=== PATIENT | female | born 1935 | race Caucasian/White ===

== ENCOUNTER 2016-11-09 08:22 | Emergency (ER) | payer MEDICARE, OTHER ==
[2013-08-30 11:39] VITALS: BMI 17.8
[~2016-11-09 08:22] MED LIST: ASPIRIN325 MG PO; CO Q-10400 MG PO; CORDARONE200 MG PO; ESTRACE2 MG PO; ESTROL PO; LASIX20 MG PO; LOPRESSOR25 MG PO; MOTRIN PM CAPL1 EACH PO; MOTRIN400 MG PO; MUCINEX DM ER1 EAC1 PO; POTASSIUM CHLO10 ME1 PO; VITAMIN B COMPL1 TA1 PO; VITAMIN B COMPL1 TAB; VITAMIN D2000 UNIT PO; XARELTO10 MG PO; ZITHROMAX500 MG PO
== END 2016-11-09 09:20 | disposition home or self-care (01) ==
LOC: D.ER 08:22
DX: S60.561A Insect bite (nonvenomous) of right hand, initial encounter (principal); W57.XXXA Bitten or stung by nonvenomous insect and other nonvenomous arthropods, initial encounter; Y93.89 Activity, other specified; Y92.89 Other specified places as the place of occurrence of the external cause

== ENCOUNTER 2018-05-11 15:01 | Inpatient (IN) | payer MEDICARE, OTHER ==
[~2018-05-11] VITALS: Ht 167.6 cm; Wt 46.7 kg
[2018-05-11 16:39] LABS: BASOPHILS 0.2 % (0-2); EOSINOPHILS 0.9 % (0-7); HEMATOCRIT 40.9 % (36.0-48.0); HEMOGLOBIN 13.1 g/dL (12-16); IMMATURE GRANULOCYTES 0.3 % (0-5); LYMPHOCYTES 9.5 % (15-50); MCH 29.8 pg (26.0-34.0); MCV 93.2 fL (80.0-100.0); MEAN PLATELET VOLUME 9.4 fL (7.4-10.4); MONOCYTES 15.7 % (2-11); NEUTROPHILS 73.4 % (40-80); RBC 4.39 10x6/uL (4.00-5.40); RDW 13.3 % (11.5-14.5); WBC 16.9 10x3/uL (4.8-10.8)
[2018-05-11 16:41] LABS: PLATELET COUNT 357 10x3/uL (130-400)
[2018-05-11 16:50] LABS: APTT 29.6 SECONDS (22.8-39.4); INR 1.12 (0.85-1.17); PROTIME 13.9 SECONDS (11.6-15.0)
[2018-05-11 17:14] LABS: ALBUMIN 2.8 g/dL (3.4-5.0); ANION GAP 13.1 mmol/L (8-16); BILIRUBIN - DIRECT 0.2 mg/dL (0.00-0.30); BILIRUBIN - INDIRECT 0.29 mg/dL (0.00-1.00); BILIRUBIN - TOTAL 0.49 mg/dL (0.2-1.3); CARBON DIOXIDE 28.7 mmol/L (21.0-32.0); CREATININE - SERUM 1.2 mg/dL (0.6-1.3); POTASSIUM - SERUM 3.8 mmol/L (3.5-5.1); PROTEIN - SERUM 7.4 g/dL (6.4-8.2); T4 THYROXINE 7.7 ug/dL (4.7-13.3); THYROID STIMULATING HORMONE 2.39 uIU/mL (0.36-3.74)
[2018-05-11 17:39] VITALS: BP 111/61; BMI 15.6
[2018-05-11 21:11] VITALS: BP 113/68
[2018-05-12] VITALS (9 sets, daily range): BP systolic 117–147; BP diastolic 60–89; BMI 15.6
[2018-05-12 05:50] LABS: BASOPHILS 0.3 % (0-2); EOSINOPHILS 1.9 % (0-7); HEMATOCRIT 34.6 % (36.0-48.0); HEMOGLOBIN 11.2 g/dL (12-16); IMMATURE GRANULOCYTES 0.3 % (0-5); LYMPHOCYTES 9.4 % (15-50); MCH 29.6 pg (26.0-34.0); MCHC 32.4 g/dL (31.0-37.0); MCV 91.5 fL (80.0-100.0); MEAN PLATELET VOLUME 9.5 fL (7.4-10.4); MONOCYTES 17.7 % (2-11); NEUTROPHILS 70.4 % (40-80); PLATELET COUNT 289 10x3/uL (130-400); RBC 3.78 10x6/uL (4.00-5.40); RDW 13.4 % (11.5-14.5); WBC 12.8 10x3/uL (4.8-10.8)
[2018-05-12 06:10] LABS: INR 1.15 (0.85-1.17); PROTIME 14.2 SECONDS (11.6-15.0)
[2018-05-12 06:11] LABS: APTT 30.8 SECONDS (22.8-39.4)
[2018-05-12 06:16] LABS: ANION GAP 15.3 mmol/L (8-16); CALCIUM 8.9 mg/dL (8.5-10.1); CARBON DIOXIDE 24.6 mmol/L (21.0-32.0); CREATININE - SERUM 0.9 mg/dL (0.6-1.3); POTASSIUM - SERUM 3.9 mmol/L (3.5-5.1); PRE-ALBUMIN 11.7 mg/dL (18.0-35.7)
[2018-05-12 11:06] LABS: PROTEIN - BODY FLUID 3.9 G/DL
[2018-05-12 14:28] LABS: MACROPHAGES BF 9 %; NEUT - BF 73 %
[2018-05-12 15:48] LABS: AMYLASE - BODY FLUID 19 U/L; CHOLESTEROL - BODY FLUID 68 mg/dL; TRIGLYCERIDE - BODY FLUID 19 mg/dL
[2018-05-13] VITALS (9 sets, daily range): BP systolic 94–160; BP diastolic 66–90
[2018-05-13 07:24] LABS: BASOPHILS 0.2 % (0-2); EOSINOPHILS 1.8 % (0-7); HEMATOCRIT 38.5 % (36.0-48.0); HEMOGLOBIN 12.6 g/dL (12-16); IMMATURE GRANULOCYTES 0.4 % (0-5); LYMPHOCYTES 8.3 % (15-50); MCH 29.9 pg (26.0-34.0); MCHC 32.7 g/dL (31.0-37.0); MCV 91.2 fL (80.0-100.0); MEAN PLATELET VOLUME 10.3 fL (7.4-10.4); MONOCYTES 16.7 % (2-11); NEUTROPHILS 72.6 % (40-80); PLATELET COUNT 343 10x3/uL (130-400); RBC 4.22 10x6/uL (4.00-5.40); RDW 13.6 % (11.5-14.5)
[2018-05-13 07:32] LABS: CALCIUM 8.7 mg/dL (8.5-10.1); CARBON DIOXIDE 25.1 mmol/L (21.0-32.0); CREATININE - SERUM 0.8 mg/dL (0.6-1.3); POTASSIUM - SERUM 4.1 mmol/L (3.5-5.1)
[2018-05-13 13:18] LABS: FUNGUS STAIN Final report (())
[2018-05-13 21:07] LABS: ACID FAST SMEAR Negative (()); AFB SPECIMEN PROCESSING Not Indicated (())
[2018-05-14 03:47] VITALS: BP 107/47
[2018-05-14 09:40] VITALS: BP 102/59
[2018-05-14 12:10] LABS: ANA REFLEX - DIRECT Negative (Negative)
[2018-05-14 13:51] VITALS: BP 106/63
[2018-05-14 17:02] VITALS: BP 120/57
[2018-05-15] VITALS (7 sets, daily range): BP systolic 105–125; BP diastolic 55–62
[2018-05-15 05:39] LABS: BASOPHILS 0.2 % (0-2); EOSINOPHILS 2.4 % (0-7); HEMATOCRIT 38.1 % (36.0-48.0); HEMOGLOBIN 12.3 g/dL (12-16); IMMATURE GRANULOCYTES 0.4 % (0-5); LYMPHOCYTES 6.1 % (15-50); MCH 29.1 pg (26.0-34.0); MCHC 32.3 g/dL (31.0-37.0); MCV 90.1 fL (80.0-100.0); MEAN PLATELET VOLUME 9.8 fL (7.4-10.4); MONOCYTES 13.3 % (2-11); NEUTROPHILS 77.6 % (40-80); PLATELET COUNT 323 10x3/uL (130-400); RBC 4.23 10x6/uL (4.00-5.40); RDW 13.4 % (11.5-14.5); WBC 16.1 10x3/uL (4.8-10.8)
[2018-05-15 06:03] LABS: ANION GAP 13.6 mmol/L (8-16); CALCIUM 8.9 mg/dL (8.5-10.1); CARBON DIOXIDE 28.3 mmol/L (21.0-32.0); POTASSIUM - SERUM 3.9 mmol/L (3.5-5.1)
[2018-05-15 06:12] LABS: CREATININE - SERUM 1.1 mg/dL (0.6-1.3)
--- NOTE | 2018-05-15 09:11 | MORECARE ---
CASE MANAGEMENT DISCHARGE SUMMARY PATIENT: Kay CAGLE UNIT: [id number] ADM DATE: 05/11/18 AGE: 83 : 35 SEX: F ROOM/BED: D.2138 AUTHOR: VERENICE ALCALA PHYSICIAN: REFERRING PHYSICIAN: JUAN JOSÉ INIGUEZ MD DATE OF SERVICE: 05/15/18 Discharge Plan Patient Name: Kay CAGLE [facility] : 1935 Planned Disposition: Home Anticipated Discharge Date: 05/18/18 Discharge Date: Expected LOS: 7 Initial Reviewer: [email or web address] Initial Review Date: 05/15/2018 Generated: 05/15/18 10:11 am DCPIA - Discharge Planning Initial Assessment Updated by [email or web address]: Natasha Scott on 05/15/18 9:08 am * Is the patient Alert and Oriented? Yes * How many steps to enter\exit or inside your home? * PCP DR. INIGUEZ * Pharmacy [email or web address] IN [facility] * Preadmission Environment Home Alone * ADLs Independent * Equipment None * List name and contact numbers for known caregivers / representatives who currently or will assist patient after discharge: DUNCAN LEMONS (DAUGHTER) [phone] ANAIS YUEN (DAUGHTER) [phone] * Verbal permission to speak to the caregivers and representatives has been obtained from the patient. Yes * Community resources currently utilized None * Additional services required to return to the preadmission environment? Yes * Can the patient safely return to the preadmission environment? Yes * Has this patient been hospitalized within the prior 30 days at any hospital? No Patient Name: Kay CAGLE Page 33853 at 0911 All edits/amendments must be made on the electronic document DICTATION DATE: 05/15/18910 CONTINUOUS CONVEYOR SCREEN DRIER: ISSA 05/15/18910 RPT#: [id number] DC DATE: STATUS: ADM IN [facility] [address] [place] [address] END OF REPORT
--- NOTE | 2018-05-15 09:18 | MORECARE ---
CASE MANAGEMENT DISCHARGE SUMMARY PATIENT: Kay CAGLE UNIT: [id number] ADM DATE: 05/11/18 AGE: 83 : 35 SEX: F ROOM/BED: D.6631 AUTHOR: VERENICE ALCALA PHYSICIAN: REFERRING PHYSICIAN: JUAN JOSÉ INIGUEZ MD DATE OF SERVICE: 05/15/18 Discharge Plan Patient Name: Kay CAGLE Facility: [facility]:[place] : 1935 Planned Disposition: Home Anticipated Discharge Date: 05/18/18 Discharge Date: Expected LOS: 7 Initial Reviewer: [email or web address] Initial Review Date: 05/15/2018 Generated: 05/15/18 10:18 am Comments DCP- Discharge Planning Updated by [email or web address]: Natasha Scott on 05/15/18 8:[address] Patient Name: Kay CAGLE Admission Status: Elective Accout number: [id number] Admission Date: 05-11-2018 : 1935 Admission Diagnosis:SHORTNESS OF BREATH Attending: JUAN JOSÉ INIGUEZ Current LOS: 4 Anticipated DC Date: 05-18-2018 Planned Disposition: Home Primary Insurance: MEDICARE A & B Discharge Planning Comments: CM MET WITH PATIENT AND DAUGHTER (ANAIS) REGARDING D/C NEEDS AND PLANS. PATIENT LIVES ALONE IN THE [facility] AND WANTS TO RETURN THERE AT D/C. PATIENT STATED HER FAMILY OR A FRIEND WOULD DRIVE HER HOME AT DISCHARGE. PATIENT IS INDEPENDENT WITH HER CARE AND HAS NO DME EQUIPMENT AT HOME. PATIENTS PCP IS DR. INIGUEZ AND USES [facility] AT THE [facility]. PATIENTS DAUGHTER STATED THEY DID NOT WANT TO CHOOSE A HOME HEALTH OR ANY OTHER PROVIDER FOR SERVICES UNTIL THEY SPEAK WITH DR. INIGUEZ. DAUGHTER STATED THEY WILL WAIT FOR THE OUTCOME BEFORE CONSIDERING OPTIONS. CM WILL CONTINUE TO FOLLOW PATIENT WITH D/C NEEDS AND PLANS. PCP DR. INIGUEZ [facility] DUNCAN (DAUGHTER) [phone] ANAIS (DAUGHTER) [phone] Machine Riveter: Natasha Scott DCPIA - Discharge Planning Initial Assessment Updated by [id number]: Natasha Scott on 05/15/18 9:08 am * Is the patient Alert and Oriented? Yes * How many steps to enter\exit or inside your home? * PCP DR. INIGUEZ * Pharmacy [facility] IN [facility] * Preadmission Environment Home Alone * ADLs Independent * Equipment None * List name and contact numbers for known caregivers / representatives who currently or will assist patient after discharge: DUNCAN LEMONS (DAUGHTER) [phone] ANAIS YUEN (DAUGHTER) [phone] * Verbal permission to speak to the caregivers and representatives has been obtained from the patient. Yes * Community resources currently utilized None * Additional services required to return to the preadmission environment? Yes * Can the patient safely return to the preadmission environment? Yes * Has this patient been hospitalized within the prior 30 days at any hospital? No Last DP export: 05/15/18 8:11 am Patient Name: Kay CAGLE Page 51702 at 0918 All edits/amendments must be made on the electronic document DICTATION DATE: 05/15/18916 SALON STYLIST: ISSA 05/15/18916 RPT#: [id number] DC DATE: STATUS: ADM IN [facility] [address] [place] [address] END OF REPORT
[2018-05-16] VITALS (9 sets, daily range): BP systolic 97–140; BP diastolic 50–71; Ht 167.6 cm; Wt 46.7 kg
[2018-05-16 05:43] LABS: BASOPHILS 0.1 % (0-2); EOSINOPHILS 3.4 % (0-7); HEMATOCRIT 35.2 % (36.0-48.0); HEMOGLOBIN 11.3 g/dL (12-16); IMMATURE GRANULOCYTES 0.3 % (0-5); LYMPHOCYTES 6.4 % (15-50); MCH 29.2 pg (26.0-34.0); MCHC 32.1 g/dL (31.0-37.0); MEAN PLATELET VOLUME 10.1 fL (7.4-10.4); MONOCYTES 14.6 % (2-11); NEUTROPHILS 75.2 % (40-80); PLATELET COUNT 303 10x3/uL (130-400); RBC 3.87 10x6/uL (4.00-5.40); RDW 13.4 % (11.5-14.5); WBC 14.4 10x3/uL (4.8-10.8)
[2018-05-16 06:04] LABS: ANION GAP 12.5 mmol/L (8-16); CALCIUM 8.5 mg/dL (8.5-10.1); CARBON DIOXIDE 28.5 mmol/L (21.0-32.0); CREATININE - SERUM 0.9 mg/dL (0.6-1.3)
[2018-05-17] VITALS: BP 110/58
[2018-05-17 09:17] VITALS: BP 113/60
[2018-05-17 11:46] VITALS: BP 118/55
[2018-05-17 20:00] VITALS: BP 139/62
[2018-05-18] VITALS: BP 128/94
[2018-05-18 04:00] VITALS: BP 130/63
[2018-05-18 08:04] VITALS: BP 93/62
[2018-05-18 12:31] VITALS: BP 114/57
[2018-05-18 17:24] VITALS: BP 125/57
[2018-05-18 20:00] VITALS: BP 118/45
[2018-05-19] VITALS: BP 119/63
[2018-05-19 04:00] VITALS: BP 123/62
[2018-05-19 05:05] LABS: BASOPHILS 0.1 % (0-2); EOSINOPHILS 0.9 % (0-7); HEMATOCRIT 32.1 % (36.0-48.0); HEMOGLOBIN 10.2 g/dL (12-16); IMMATURE GRANULOCYTES 0.5 % (0-5); MCH 28.7 pg (26.0-34.0); MCHC 31.8 g/dL (31.0-37.0); MCV 90.4 fL (80.0-100.0); MEAN PLATELET VOLUME 9.8 fL (7.4-10.4); MONOCYTES 15.3 % (2-11); NEUTROPHILS 76.2 % (40-80); PLATELET COUNT 310 10x3/uL (130-400); RBC 3.55 10x6/uL (4.00-5.40); RDW 13.4 % (11.5-14.5); WBC 19.3 10x3/uL (4.8-10.8)
[2018-05-19 05:24] LABS: ANION GAP 11.2 mmol/L (8-16); CALCIUM 8.3 mg/dL (8.5-10.1); CARBON DIOXIDE 28.3 mmol/L (21.0-32.0); POTASSIUM - SERUM 4.5 mmol/L (3.5-5.1)
[2018-05-19 09:45] VITALS: BP 158/89
[2018-05-19 11:00] VITALS: BP 111/53
[2018-05-19 18:08] LABS: ACID FAST SMEAR Negative (()); AFB SPECIMEN PROCESSING Concentration (())
[2018-05-19 20:00] VITALS: BP 136/56
[2018-05-20] VITALS: BP 130/64
[2018-05-20 04:00] VITALS: BP 138/69
[2018-05-20 08:15] VITALS: BP 113/57
[2018-05-20 11:06] LABS: ANION GAP 12.8 mmol/L (8-16); CALCIUM 8.6 mg/dL (8.5-10.1); CARBON DIOXIDE 27.3 mmol/L (21.0-32.0); POTASSIUM - SERUM 4.1 mmol/L (3.5-5.1)
[2018-05-20 11:25] LABS: BASOPHILS 0.1 % (0-2); EOSINOPHILS 1.3 % (0-7); HEMATOCRIT 36.5 % (36.0-48.0); HEMOGLOBIN 11.7 g/dL (12-16); IMMATURE GRANULOCYTES 0.3 % (0-5); LYMPHOCYTES 10.7 % (15-50); MCH 29.5 pg (26.0-34.0); MCHC 32.1 g/dL (31.0-37.0); MCV 92.2 fL (80.0-100.0); MEAN PLATELET VOLUME 10.1 fL (7.4-10.4); MONOCYTES 8.5 % (2-11); NEUTROPHILS 79.1 % (40-80); RBC 3.96 10x6/uL (4.00-5.40); RDW 13.3 % (11.5-14.5); WBC 18.2 10x3/uL (4.8-10.8)
[2018-05-20 11:31] LABS: PLATELET COUNT 402 10x3/uL (130-400)
[2018-05-20 11:41] VITALS: BP 106/86
[2018-05-20 11:45] LABS: % SATURATION 12 % (15-55); IRON 20 ug/dl (35-150); TOTAL IRON BIND CAPACITY 158 ug/dl (260-445); UNSAT IRON BIND CAPACITY 138 ug/dl (150-375)
[2018-05-20 12:21] LABS: FUNGUS STAIN Final report (())
[2018-05-20 17:05] VITALS: BP 104/45
--- NOTE | 2018-05-20 17:50 | MORECARE ---
CASE MANAGEMENT DISCHARGE SUMMARY PATIENT: Kay CAGLE UNIT: [id number] ADM DATE: 05/11/18 AGE: 83 : 35 SEX: F ROOM/BED: D.8967 AUTHOR: VERENICE ALCALA PHYSICIAN: REFERRING PHYSICIAN: JUAN JOSÉ INIGUEZ MD DATE OF SERVICE: 05/20/18 Discharge Plan Patient Name: Kay CAGLE Facility: [facility]:[place] : 1935 Planned Disposition: Snf Facility Anticipated Discharge Date: 05/23/18 Discharge Date: Expected LOS: 12 Initial Reviewer: [email or web address] Initial Review Date: 05/15/2018 Generated: 05/20/18 6:50 pm Comments DCP- Discharge Planning Updated by [email or web address]: Natasha Scott on 05/15/18 8:[address] Patient Name: Kay CAGLE Admission Status: Elective Accout number: [id number] Admission Date: 05-11-2018 : 1935 Admission Diagnosis:SHORTNESS OF BREATH Attending: JUAN JOSÉ INIGUEZ Current LOS: 4 Anticipated DC Date: 05-18-2018 Planned Disposition: Home Primary Insurance: MEDICARE A & B Discharge Planning Comments: CM MET WITH PATIENT AND DAUGHTER (ANAIS) REGARDING D/C NEEDS AND PLANS. PATIENT LIVES ALONE IN THE [facility] AND WANTS TO RETURN THERE AT D/C. PATIENT STATED HER FAMILY OR A FRIEND WOULD DRIVE HER HOME AT DISCHARGE. PATIENT IS INDEPENDENT WITH HER CARE AND HAS NO DME EQUIPMENT AT HOME. PATIENTS PCP IS DR. INIGUEZ AND USES [facility] AT THE [facility]. PATIENTS DAUGHTER STATED THEY DID NOT WANT TO CHOOSE A HOME HEALTH OR ANY OTHER PROVIDER FOR SERVICES UNTIL THEY SPEAK WITH DR. INIGUEZ. DAUGHTER STATED THEY WILL WAIT FOR THE OUTCOME BEFORE CONSIDERING OPTIONS. CM WILL CONTINUE TO FOLLOW PATIENT WITH D/C NEEDS AND PLANS. PCP DR. INIGUEZ [facility] DUNCAN (DAUGHTER) [phone] ANAIS (DAUGHTER) [phone] Unhairer: Natasha Scott DCPIA - Discharge Planning Initial Assessment Updated by [email or web address]: Natasha Scott on 05/15/18 9:08 am * Is the patient Alert and Oriented? Yes * How many steps to enter\exit or inside your home? * PCP DR. INIGUEZ * Pharmacy [facility] IN [facility] * Preadmission Environment Home Alone * ADLs Independent * Equipment None * List name and contact numbers for known caregivers / representatives who currently or will assist patient after discharge: DUNCAN LEMONS (DAUGHTER) [phone] ANAIS YUEN (DAUGHTER) [phone] * Verbal permission to speak to the caregivers and representatives has been obtained from the patient. Yes * Community resources currently utilized None * Additional services required to return to the preadmission environment? Yes * Can the patient safely return to the preadmission environment? Yes * Has this patient been hospitalized within the prior 30 days at any hospital? No Last DP export: 05/15/18 8:18 am Patient Name: Kay CAGLE Page 18207 at 1750 All edits/amendments must be made on the electronic document DICTATION DATE: 05/20/181749 FORMAL WAITER/WAITRESS: ISSA 05/20/181749 RPT#: [id number] DC DATE: STATUS: ADM IN [facility] [address] [place] [address] END OF REPORT
--- NOTE | 2018-05-20 17:59 | MORECARE ---
CASE MANAGEMENT DISCHARGE SUMMARY PATIENT: Kay CAGLE UNIT: [id number] ADM DATE: 05/11/18 AGE: 83 : 35 SEX: F ROOM/BED: D.2263 AUTHOR: VERENICE ALCALA PHYSICIAN: REFERRING PHYSICIAN: JUAN JOSÉ INIGUEZ MD DATE OF SERVICE: 05/20/18 Discharge Plan Patient Name: Kay CAGLE Facility: [facility]:[place] : 1935 Planned Disposition: Correction Facility Anticipated Discharge Date: 05/23/18 Discharge Date: Expected LOS: 12 Initial Reviewer: [email or web address] Initial Review Date: 05/15/2018 Generated: 05/20/18 6:58 pm Comments DCP- Discharge Planning Updated by [email or web address]: Jamie Garza on 05/20/18 4:[address] Patient Name: Kay CAGLE Encounter No: [id number] : 1935 Primary Insurance: MEDICARE A & B Anticipated DC Date: 05-23-2018 Planned Disposition: Correction Facility External Planned Provider: [facility] MED[facility]ARE REH[facility] BED DCP follow-up note: CM MET WITH PT AND DAUGHTERS IN ROOM TO DISCUSS REHAB AND DISCHARGE NEEDS. PT REPORTS BEING WEAK AND UNABLE TO RETURN HOME ALONE AT DISCHARGE. PT'S DAUGHTERS RECOMMENDED REHAB AT [facility] TO PT PT DOES NOT FEEL SHE CAN PARTICIPATE IN THREE HOURS OF THERAPY PER DAY FOR INPATIENT REHAB. CM PROVIDED PROVIDER LISTING. PT WANTS REHAB AT [facility] TO BE CLOSE TO HER HOME. CHOICE SIGNED. CM EXPLAINED THAT PT WILL NEED TO BE MEDIALLY STABLE FOR DISCHARGE TO BE DISCHARGED TO REHAB AND ONCE PHYSICAL AND OCCUPATIONAL THERAPY EVALUATIONS ARE COMPLETED WHILE HERE IN HOSPITAL, CM WILL SEND REFERRAL FOR REHAB TO [facility]. PATIENT NEEDS ORDERS FOR PHYSICAL AND OCCUPATIONAL THERAPY EVALUATIONS. ONCE COMPLETED AND DOCUMENTED, CM WILL SEND REFERRAL FOR REHAB TO [facility]. JUANA Katz DCP- Discharge Planning Updated by [id number]: Natasha Scott on 05/15/18 8:[address] Patient Name: Kay CAGLE Admission Status: Elective Accout number: [id number] Admission Date: 05-11-2018 : 1935 Admission Diagnosis:SHORTNESS OF BREATH Attending: JUAN JOSÉ INIGUEZ Current LOS: 4 Anticipated DC Date: 05-18-2018 Planned Disposition: Home Primary Insurance: MEDICARE A & B Discharge Planning Comments: CM MET WITH PATIENT AND DAUGHTER (ANAIS) REGARDING D/C NEEDS AND PLANS. PATIENT LIVES ALONE IN THE [facility] AND WANTS TO RETURN THERE AT D/C. PATIENT STATED HER FAMILY OR A FRIEND WOULD DRIVE HER HOME AT DISCHARGE. PATIENT IS INDEPENDENT WITH HER CARE AND HAS NO DME EQUIPMENT AT HOME. PATIENTS PCP IS DR. INIGUEZ AND USES [facility] AT THE [facility]. PATIENTS DAUGHTER STATED THEY DID NOT WANT TO CHOOSE A HOME HEALTH OR ANY OTHER PROVIDER FOR SERVICES UNTIL THEY SPEAK WITH DR. INIGUEZ. DAUGHTER STATED THEY WILL WAIT FOR THE OUTCOME BEFORE CONSIDERING OPTIONS. CM WILL CONTINUE TO FOLLOW PATIENT WITH D/C NEEDS AND PLANS. PCP DR. INIGUEZ [facility] DUNCAN (DAUGHTER) [phone] ANAIS (DAUGHTER) [phone] Pretzel Cooker: Natasha Scott DCPIA - Discharge Planning Initial Assessment Updated by [email or web address]: Natasha Scott on 05/15/18 9:08 am * Is the patient Alert and Oriented? Yes * How many steps to enter\exit or inside your home? * PCP DR. INIGUEZ * Pharmacy [facility] IN [facility] * Preadmission Environment Home Alone * ADLs Independent * Equipment None * List name and contact numbers for known caregivers / representatives who currently or will assist patient after discharge: DUNCAN LEMONS (DAUGHTER) [phone] ANAIS YUEN (DAUGHTER) [phone] * Verbal permission to speak to the caregivers and representatives has been obtained from the patient. Yes * Community resources currently utilized None * Additional services required to return to the preadmission environment? Yes * Can the patient safely return to the preadmission environment? Yes * Has this patient been hospitalized within the prior 30 days at any hospital? No External Providers External Provider: [facility] Next Contact Date: 05/23/2018 Service Request Date: Service Type: Resolution: Reviewer: Comments: Last DP export: 05/20/18 4:50 pm Patient Name: Kay CAGLE Page 45146 at 1759 All edits/amendments must be made on the electronic document DICTATION DATE: 05/20/181757 MERCHANT PATROLLER: ISSA 05/20/181757 RPT#: [id number] DC DATE: STATUS: ADM IN [facility] [address] [place] [address] END OF REPORT
[2018-05-20 20:00] VITALS: BP 109/53
[2018-05-21 00:27] VITALS: BP 114/54
[2018-05-21 05:02] VITALS: BP 115/64
[2018-05-21 05:19] LABS: ANION GAP 12.2 mmol/L (8-16); CALCIUM 8.4 mg/dL (8.5-10.1); POTASSIUM - SERUM 4.2 mmol/L (3.5-5.1)
[2018-05-21 05:30] LABS: BASOPHILS 0.2 % (0-2); EOSINOPHILS 2.7 % (0-7); HEMOGLOBIN 11.1 g/dL (12-16); IMMATURE GRANULOCYTES 0.5 % (0-5); LYMPHOCYTES 4.2 % (15-50); MCH 29.1 pg (26.0-34.0); MCHC 31.7 g/dL (31.0-37.0); MCV 91.9 fL (80.0-100.0); MONOCYTES 14.3 % (2-11); NEUTROPHILS 78.1 % (40-80); PLATELET COUNT 342 10x3/uL (130-400); RBC 3.81 10x6/uL (4.00-5.40); RDW 13.4 % (11.5-14.5); WBC 17.3 10x3/uL (4.8-10.8)
[2018-05-21 07:40] VITALS: BP 107/42
[2018-05-21 20:00] VITALS: BP 128/57
[2018-05-22] VITALS: BP 121/61
[2018-05-22 04:00] VITALS: BP 122/63
[2018-05-22 10:50] VITALS: BP 125/57
[2018-05-22 17:41] VITALS: BP 132/55
[2018-05-22 20:38] VITALS: BP 104/46
[2018-05-23] VITALS: BP 108/58
[2018-05-23 04:00] VITALS: BP 146/61
[2018-05-23 07:42] VITALS: BP 110/56
[2018-05-23] MEDS ORDERED: ATROVENT 0.02%2.5 ML UPD (08:13)
[2018-05-23] MEDS ORDERED: LOPRESSOR25 MG PO (08:14)
[2018-05-23] MEDS ORDERED: AMIODARONE HCL200 MG PO (08:14)
[2018-05-23] MEDS ORDERED: CARDIZEM CD180 MG PO (08:14)
[2018-05-23] MEDS ORDERED: MUCINEX DM ER1 EAC1 PO (08:15)
[2018-05-23] MEDS ORDERED: PULMICORT0.5 MG/21 UPD (08:15)
[2018-05-23] MEDS ORDERED: PROTONIX40 MG PO (08:16)
[2018-05-23] MEDS ORDERED: MARINOL2.5 MG PO ×2 (08:16→11:39)
[2018-05-23] MEDS ORDERED: CALMOSEPTINE OI71 GM TOPICAL (08:17)
[2018-05-23 11:18] VITALS: BP 111/50
--- NOTE | 2018-05-23 14:14 | MORECARE ---
CASE MANAGEMENT DISCHARGE SUMMARY PATIENT: Kay CAGLE UNIT: [id number] ADM DATE: 05/11/18 AGE: 83 : 35 SEX: F ROOM/BED: D.9359 AUTHOR: VERENICE ALCALA PHYSICIAN: REFERRING PHYSICIAN: JUAN JOSÉ INIGUEZ MD DATE OF SERVICE: 05/23/18 Discharge Plan Patient Name: Kay CAGLE Facility: [facility]:[place] : 1935 Planned Disposition: Prison Facility Anticipated Discharge Date: 05/23/18 Discharge Date: Expected LOS: 12 Initial Reviewer: [email or web address] Initial Review Date: 05/15/2018 Generated: 05/23/18 3:14 pm Comments DCP- Discharge Planning Updated by [email or web address]: Jamie Garza on 05/20/18 4:[address] Patient Name: Kay CAGLE Encounter No: [id number] : 1935 Primary Insurance: MEDICARE A & B Anticipated DC Date: 05-23-2018 Planned Disposition: Prison Facility External Planned Provider: [facility] MEDICARE REHAB BED DCP follow-up note: CM MET WITH PT AND DAUGHTERS IN ROOM TO DISCUSS REHAB AND DISCHARGE NEEDS. PT REPORTS BEING WEAK AND UNABLE TO RETURN HOME ALONE AT DISCHARGE. PT'S DAUGHTERS RECOMMENDED REHAB AT [facility] TO PT PT DOES NOT FEEL SHE CAN PARTICIPATE IN THREE HOURS OF THERAPY PER DAY FOR INPATIENT REHAB. CM PROVIDED PROVIDER LISTING. PT WANTS REHAB AT [facility] TO BE CLOSE TO HER HOME. CHOICE SIGNED. CM EXPLAINED THAT PT WILL NEED TO BE MEDIALLY STABLE FOR DISCHARGE TO BE DISCHARGED TO REHAB AND ONCE PHYSICAL AND OCCUPATIONAL THERAPY EVALUATIONS ARE COMPLETED WHILE HERE IN HOSPITAL, CM WILL SEND REFERRAL FOR REHAB TO [facility]. PATIENT NEEDS ORDERS FOR PHYSICAL AND OCCUPATIONAL THERAPY EVALUATIONS. ONCE COMPLETED AND DOCUMENTED, CM WILL SEND REFERRAL FOR REHAB TO [facility]. JUANA Katz DCP- Discharge Planning Updated by [id number]: Natasha Scott on 05/15/18 8:[address] Patient Name: Kay CAGLE Admission Status: Elective Accout number: [id number] Admission Date: 05-11-2018 : 1935 Admission Diagnosis:SHORTNESS OF BREATH Attending: JUAN JOSÉ INIGUEZ Current LOS: 4 Anticipated DC Date: 05-18-2018 Planned Disposition: Home Primary Insurance: MEDICARE A & B Discharge Planning Comments: CM MET WITH PATIENT AND DAUGHTER (ANAIS) REGARDING D/C NEEDS AND PLANS. PATIENT LIVES ALONE IN THE [facility] AND WANTS TO RETURN THERE AT D/C. PATIENT STATED HER FAMILY OR A FRIEND WOULD DRIVE HER HOME AT DISCHARGE. PATIENT IS INDEPENDENT WITH HER CARE AND HAS NO DME EQUIPMENT AT HOME. PATIENTS PCP IS DR. INIGUEZ AND USES [facility] AT THE [facility]. PATIENTS DAUGHTER STATED THEY DID NOT WANT TO CHOOSE A HOME HEALTH OR ANY OTHER PROVIDER FOR SERVICES UNTIL THEY SPEAK WITH DR. INIGUEZ. DAUGHTER STATED THEY WILL WAIT FOR THE OUTCOME BEFORE CONSIDERING OPTIONS. CM WILL CONTINUE TO FOLLOW PATIENT WITH D/C NEEDS AND PLANS. PCP DR. INIGUEZ [facility] DUNCAN (DAUGHTER) [phone] ANAIS (DAUGHTER) [phone] Technical Support Intern: Natasha Scott DCPIA - Discharge Planning Initial Assessment Updated by [email or web address]: Natasha Scott on 05/15/18 9:08 am * Is the patient Alert and Oriented? Yes * How many steps to enter\exit or inside your home? * PCP DR. INIGUEZ * Pharmacy [facility] IN [facility] * Preadmission Environment Home Alone * ADLs Independent * Equipment None * List name and contact numbers for known caregivers / representatives who currently or will assist patient after discharge: DUNCAN LEMONS (DAUGHTER) [phone] ANAIS YUEN (DAUGHTER) [phone] * Verbal permission to speak to the caregivers and representatives has been obtained from the patient. Yes * Community resources currently utilized None * Additional services required to return to the preadmission environment? Yes * Can the patient safely return to the preadmission environment? Yes * Has this patient been hospitalized within the prior 30 days at any hospital? No Coverage Notice Reviewer: [id number] - Jamie Garza Notice Issued Date-Time: 05/23/2018 12:05 Notice Type: IM Discharge Notice Notice Delivered To: Patient Relationship to Patient: Application Development Specialist Name: Delivery Method: HAND - Hand Delivered Gabriela Days: Prior Verbal Notification: Recipient Understood Notice: Yes Recipient Signature: Med Rec Note Co-signed by Attending: Coverage Notice Comment: PATIENT REFUSED SIGNATURE Last DP export: 05/20/18 4:59 pm Patient Name: Kay CAGLE Page 01588 at 1414 All edits/amendments must be made on the electronic document DICTATION DATE: 05/23/181412 MAINTE[address]CE OF [address] SUPERVISOR: ISSA 05/23/181412 RPT#: [id number] DC DATE: STATUS: ADM IN [facility] [address] [place] [address] END OF REPORT
--- NOTE | 2018-05-23 14:23 | MORECARE ---
CASE MANAGEMENT DISCHARGE SUMMARY PATIENT: Kay CAGLE UNIT: [id number] ADM DATE: 05/11/18 AGE: 83 : 35 SEX: F ROOM/BED: D.6233 AUTHOR: VERENICE ALCALA PHYSICIAN: REFERRING PHYSICIAN: JUAN JOSÉ INIGUEZ MD DATE OF SERVICE: 05/23/18 Discharge Plan Patient Name: Kay CAGLE Facility: [facility]:[place] : 1935 Planned Disposition: Care Home Facility Anticipated Discharge Date: 05/23/18 Discharge Date: Expected LOS: 12 Initial Reviewer: [id number] Initial Review Date: 05/15/2018 Generated: 05/23/18 3:22 pm Comments DCP- Discharge Planning Updated by [email or web address]: Jamie Garza on 05/23/18 1:[address] Patient Name: Kay CAGLE Encounter No: [id number] : 1935 Primary Insurance: MEDICARE A & B Anticipated DC Date: 05-23-2018 Planned Disposition: Care Home Facility External Planned Provider: [facility] MEDICARE REHAB BED DCP follow-up note: CM SPOKE TO DR. INIGUEZ WHO INFORMED THAT PT IS READY TO DISCHARGE TO REHAB TODAY. CM REVIEWED CHART, PHYSICAL THERAPY EVALUATION IS DOCUMENTED OVER WEEKEND. CM FAXED REFERRAL TO [facility] AT [phone]. CM CALLED [facility], , ASKED FOR SCREENING AND ADMISSION DETERMINATION TODAY. PT NOTIFIED IN ROOM, PT REPORTS AGREEMENT WITH REHAB PLACEMENT AT [facility]. IMPORTANT MESSAGE FROM MEDICARE PROVIDED AND EXPLAINED. PT ASKED CM TO NOTIFY HER DAUGHTER WHO IS "HERE SOMEWHERE." PT'S DAUGHTER SPOKE TO CM AT NURSES STATION, THEY ARE IN AGREEMENT WITH REHAB AT [facility] AND ASKED FOR PERSONAL CARE AGENCY LISTING. CM PROVIDED PERSONAL CARE AGENCY LISTING. PT'S DAUGHTER ASKED ABOUT HOME HEALTH, CM EXPLAINED THAT HOME SERVICES AND MEDICAL EQUIPMENT [facility]GE PLANNING FROM REHAB. PT'S DAUGHTER THANKED FOR ASSISTANCE. AT APPROXIMATELY 1330 HOURS, CM CALLED [facility], , WHO ADVISED THAT THE VENDING ROUTE DRIVER STILL HAS NOT COMPLETED HER REVIEW FOR ADMISSION DETERMINATION. CM WAITING ADMISSION DETERMINATION FROM [facility] FOR REHAB SERVICES. JUANA Katz MANAGEMENT DCP- Discharge Planning Updated by [email or web address]: Jamie Garza on 05/20/18 4:[address] Patient Name: Kay CAGLE Encounter No: [id number] : 1935 Primary Insurance: MEDICARE A & B Anticipated DC Date: 05-23-2018 Planned Disposition: Care Home Facility External Planned Provider: [facility], MEDICARE REHAB BED DCP follow-up note: CM MET WITH PT AND DAUGHTERS IN ROOM TO DISCUSS REHAB AND DISCHARGE NEEDS. PT REPORTS BEING WEAK AND UNABLE TO RETURN HOME ALONE AT DISCHARGE. PT'S DAUGHTERS RECOMMENDED REHAB AT [facility] TO PT PT DOES NOT FEEL SHE CAN PARTICIPATE IN THREE HOURS OF THERAPY PER DAY FOR INPATIENT REHAB. CM PROVIDED PROVIDER LISTING. PT WANTS REHAB AT [facility] TO BE CLOSE TO HER HOME. CHOICE SIGNED. CM EXPLAINED THAT PT WILL NEED TO BE MEDIALLY STABLE FOR DISCHARGE TO BE DISCHARGED TO REHAB AND ONCE PHYSICAL AND OCCUPATIONAL THERAPY EVALUATIONS ARE COMPLETED WHILE HERE IN HOSPITAL, CM WILL SEND REFERRAL FOR REHAB TO [facility]. PATIENT NEEDS ORDERS FOR PHYSICAL AND OCCUPATIONAL THERAPY EVALUATIONS. ONCE COMPLETED AND DOCUMENTED, CM WILL SEND REFERRAL FOR REHAB TO [facility]. JUANA Katz DCP- Discharge Planning Updated by [id number]: Natasha Scott on 05/15/18 8:[address] Patient Name: Kay CAGLE Admission Status: Elective Accout number: [id number] Admission Date: 05-11-2018 : 1935 Admission Diagnosis:SHORTNESS OF BREATH Attending: JUAN JOSÉ INIGUEZ Current LOS: 4 Anticipated DC Date: 05-18-2018 Planned Disposition: Home Primary Insurance: MEDICARE A & B Discharge Planning Comments: CM MET WITH PATIENT AND DAUGHTER (ANAIS) REGARDING D/C NEEDS AND PLANS. PAT[place] LIVES ALONE IN [place] AND WANTS TO RETURN THERE AT D/C. PATIENT STATED HER FAMILY OR A FRIEND WOULD DRIVE HER HOME AT DISCHARGE. PATIENT IS INDEPENDENT WITH HER CARE AND HAS NO DME EQUIPMENT AT HOME. PATIENTS PCP IS DR. INIGUEZ AND USES [facility] AT THE [facility]. PATIENTS DAUGHTER STATED THEY DID NOT WANT TO CHOOSE A HOME HEALTH OR ANY OTHER PROVIDER FOR SERVICES UNTIL THEY SPEAK WITH DR. INIGUEZ. DAUGHTER STATED THEY WILL WAIT FOR THE OUTCOME BEFORE CONSIDERING OPTIONS. CM WILL CONTINUE TO FOLLOW PATIENT WITH D/C NEEDS AND PLANS. PCP [facility] DUNCAN (DAUGHTER) [phone] ANAIS (DAUGHTER) [phone] Neurology Hospitalist: Natasha Scott DCPIA - Discharge Planning Initial Assessment Updated by [email or web address]: Natasha Scott on 05/15/18 9:08 am * Is the patient Alert and Oriented? Yes * How many steps to enter\\exit or inside your home? * PCP DR. INIGUEZ * Pharmacy [facility] * Preadmission Environment Home Alone * ADLs Independent * Equipment None * List name and contact numbers for known caregivers / representatives who currently or will assist patient after discharge: DUNCAN LEMONS (DAUGHTER) [phone] ANAIS YUEN (DAUGHTER) [phone] * Verbal permission to speak to the caregivers and representatives has been obtained from the patient. Yes * Community resources currently utilized None * Additional services required to return to the preadmission environment? Yes * Can the patient safely return to the preadmission environment? Yes * Has this patient been hospitalized within the prior 30 days at any hospital? No Coverage Notice Reviewer: [id number] - Jamie Garza Notice Issued Date-Time: 05/23/2018 12:05 Notice Type: IM Discharge Notice Notice Delivered To: Patient Relationship to Patient: Rim Technician Name: Delivery Method: HAND - Hand Delivered Gabriela Days: Prior Verbal Notification: Recipient Understood Notice: Yes Recipient Signature: Med Rec Note Co-signed by Attending: Coverage Notice Comment: PATIENT REFUSED SIGNATURE Last DP export: 05/23/18 1:14 p Patient Name: Kay CAGLE Page 08161 at 1423 All edits/amendments must be made on the electronic document DICTATION DATE: 05/23/181421 PRODUCTION INTERNSHIP: ISSA 05/23/181421 RPT#: [id number] DC DATE: STATUS: ADM IN [facility] [address] [place] [address] END OF REPORT
[2018-05-23 15:36] VITALS: BP 111/46
--- NOTE | 2018-05-23 16:18 | MORECARE ---
CASE MANAGEMENT DISCHARGE SUMMARY PATIENT: Kay CAGLE UNIT: [id number] ADM DATE: 05/11/18 AGE: 83 : 35 SEX: F ROOM/BED: D.1032 AUTHOR: VERENICE ALCALA PHYSICIAN: REFERRING PHYSICIAN: JUAN JOSÉ INIGUEZ MD DATE OF SERVICE: 05/23/18 Discharge Plan Patient Name: Kay CAGLE Facility: [facility]:[place] : 1935 Planned Disposition: Alf Facility Anticipated Discharge Date: 05/24/18 Discharge Date: Expected LOS: 13 Initial Reviewer: [id number] Initial Review Date: 05/15/2018 Generated: 05/23/18 5:17 pm Comments DCP- Discharge Planning Updated by [id number]: Jamie Garza on 05/23/18 3:[address] Patient Name: Kay CAGLE Encounter No: [id number] : 1935 Primary Insurance: MEDICARE A & B Anticipated DC Date: 05-23-2018 Planned Disposition: Alf Facility External Planned Provider: [facility] MED[facility]ARE REHAB BED DCP follow-up note: CM SPOKE TO DR. INIGUEZ WHO INFORMED THAT PT IS READY TO DISCHARGE TO REHAB TODAY. CM REVIEWED CHART, PHYSICAL THERAPY EVALUATION IS DOCUMENTED OVER WEEKEND. CM FAXED REFERRAL TO [facility] AT [phone]. CM CALLED [facility], , ASKED FOR SCREENING AND ADMISSION DETERMINATION TODAY. PT NOTIFIED IN ROOM, PT REPORTS AGREEMENT WITH REHAB PLACEMENT AT [facility]. IMPORTANT MESSAGE FROM MEDICARE PROVIDED AND EXPLAINED. PT ASKED CM TO NOTIFY HER DAUGHTER WHO IS "HERE SOMEWHERE." PT'S DAUGHTER SPOKE TO CM AT NURSES STATION, THEY ARE IN AGREEMENT WITH REHAB AT [facility] AND ASKED FOR PERSONAL CARE AGENCY LISTING. CM PROVIDED PERSONAL CARE AGENCY LISTING. PT'S DAUGHTER ASKED ABOUT HOME HEALTH, CM EXPLAINED THAT HOME SERVICES AND MEDICAL EQUIPMENT WOULD BE ARRANGED BY [facility] PART OF DISCHARGE PLANNING FROM REHAB. PT'S DAUGHTER THANKED FOR ASSISTANCE. AT APPROXIMATELY 1330 HOURS, CM CALLED [facility], , WHO ADVISED THAT THE PILLOW FILLER STILL HAS NOT COMPLETED HER REVIEW FOR ADMISSION DETERMINATION. CM WAITING ADMISSION DETERMINATION FROM [facility] FOR REHAB SERVICES. 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 PT AND DAUGHTER NOTIED IN ROOM. BOTH IN AGREEMENT WITH DISCHARGE TO REHAB TOMORROW. CM NOTIFIED DR. PASTOR NURSE VIA PHONE IN CLINIC. CM NOTIFIED FLEX O WRITER OPERATOR NURSE. CM FAXED DISCHARGE INFORMATION TO [facility]. NURSE REPORT TO BE CALLED TO [facility] AT [phone]. [facility] TO ARRANGE VAN TRANSPORT FOR 1100AM 05-24-18. JUANA VENTURA DCP- Discharge Planning Updated by [email or web address]: Jamie Garza on 05/20/18 4:[address] Patient Name: Kay CAGLE Encounter No: [id number] : 1935 Primary Insurance: MEDICARE A & B Anticipated DC Date: 05-23-2018 Planned Disposition: Alf Facility External Planned Provider[facility] DCP follow-up note: CM MET WITH PT AND DAUGHTERS IN ROOM TO DISCUSS REHAB AND DISCHARGE NEEDS. PT REPORTS BEING WEAK AND UNABLE TO RETURN HOME ALONE AT DISCHARGE. PT'S DAUGHTERS RECOMMENDED REHAB AT [facility] TO PT PT DOES NOT FEEL SHE CAN PARTICIPATE IN THREE HOURS OF THERAPY PER DAY FOR INPATIENT REHAB. CM PROVIDED PROVIDER LISTING. PT WANTS REHAB AT [facility] TO BE CLOSE TO HER HOME. CHOICE SIGNED. CM EXPLAINED THAT PT WILL NEED TO BE MEDIALLY STABLE FOR DISCHARGE TO BE DISCHARGED TO REHAB AND ONCE PHYSICAL AND OCCUPATIONAL THERAPY EVALUATIONS ARE COMPLETED WHILE HERE IN HOSPITAL, CM WILL SEND REFERRAL FOR REHAB TO [facility]. PATIENT NEEDS ORDERS FOR PHYSICAL AND OCCUPATIONAL THERAPY EVALUATIONS. ONCE COMPLETED AND DOCUMENTED, CM WILL SEND REFERRAL FOR REHAB TO [facility]. JUANA Ventura DCP- Discharge Planning Updated by [id number]: Natasha Scott on 05/15/18 8:[address] Patient Name: Kay CAGLE Admission Status: Elective Accout number: [id number] Admission Date: 05-11-2018 : 1935 Admission Diagnosis:SHORTNESS OF BREATH Attending: JUAN JOSÉ INIGUEZ Current LOS: 4 Anticipated DC Date: 05-18-2018 Planned Disposition: Home Primary Insurance: MEDICARE A & B Discharge Planning Comments: CM MET WITH PATIENT AND DAUGHTER (ANAIS) REGARDING D/C NEEDS AND PLANS. PATIENT LIVES ALONE IN THE [facility] AND WANTS TO RETURN THERE AT D/C. PATIENT STATED HER FAMILY OR A FRIEND WOULD DRIVE HER HOME AT DISCHARGE. PATIENT IS INDEPENDENT WITH HER CARE AND HAS NO DME EQUIPMENT AT HOME. PATIENTS PCP IS DR. INIGUEZ AND USES [facility] AT THE [facility]. PATIENTS DAUGHTER STATED THEY DID NOT WANT TO CHOOSE A HOME HEALTH OR ANY OTHER PROVIDER FOR SERVICES UNTIL THEY SPEAK WITH DR. INIGUEZ. DAUGHTER STATED THEY WILL WAIT FOR THE OUTCOME BEFORE CONSIDERING OPTIONS. CM WILL CONTINUE TO FOLLOW PATIENT WITH D/C NEEDS AND PLANS. PCP DR. INIGUEZ [facility] (DAUGHTER) [phone] ANAIS (DAUGHTER) [phone] Unit Manager Rn: Natasha Scott DCPIA - Discharge Planning Initial Assessment Updated by [id number]: Natasha Scott on 05/15/18 9:08 am * Is the patient Alert and Oriented? Yes * How many steps to enter\\exit or inside your home? * PCP DR. INIGUEZ * [facility] * Preadmission Environment Home Alone * ADLs Independent * Equipment None * List name and contact numbers for known caregivers / representatives who currently or will assist patient after discharge: DUNCAN LEMONS (DAUGHTER) [phone] ANAIS YUEN (DAUGHTER) [phone] * Verbal permission to speak to the caregivers and representatives has been obtained from the patient. Yes * Community resources currently utilized None * Additional services required to return to the preadmission environment? Yes * Can the patient safely return to the preadmission environment? Yes * Has this patient been hospitalized within the prior 30 days at any hospital? No External Providers External Provider: [facility] Next Contact Date: 05/23/2018 Service Request Date: Service Type: Resolution: Reviewer: Comments: Coverage Notice Reviewer: [id number] - Jamie Garza Notice Issued Date-Time: 05/23/2018 12:05 Notice Type: IM Discharge Notice Notice Delivered To: Patient Relationship to Patient: Veneer Repairer Machine Name: Delivery Method: HAND - Hand Delivered Gabriela Days: Prior Verbal Notification: Recipient Understood Notice: Yes Recipient Signature: Med Rec Note Co-signed by Attending: Coverage Notice Comment: PATIENT REFUSED SIGNATURE Last DP export: 05/23/18 1:22 p Patient Name: Kay CAGLE Page 80414 at 1618 All edits/amendments must be made on the electronic document DICTATION DATE: 05/23/181616 GRINDER SET UP OPERATOR THREAD: ISSA 05/23/181616 RPT#: [id number] DC DATE: STATUS: ADM IN [facility] [address] [place] [address] END OF REPORT
[2018-05-23 21:11] VITALS: BP 123/58
[2018-05-24 02:25] VITALS: BP 130/55
[2018-05-24 08:14] VITALS: BP 118/62
--- NOTE | 2018-05-24 14:14 | MORECARE ---
CASE MANAGEMENT DISCHARGE SUMMARY PATIENT: Kay CAGLE UNIT: [id number] ADM DATE: 05/11/18 AGE: 83 : 35 SEX: F ROOM/BED: D.0375 AUTHOR: CARIDOC PHYSICIAN: REFERRING PHYSICIAN: JUAN JOSÉ INIGUEZ MD DATE OF SERVICE: 05/24/18 Discharge Plan Patient Name: Kay CAGLE Facility: [facility]:[place] : 1935 Planned Disposition: Longterm Facility Anticipated Discharge Date: 05/24/18 Discharge Date: 05/24/2018 Expected LOS: 13 Initial Reviewer: [id number] Initial Review Date: 05/15/2018 Generated: 05/24/18 3:13 pm Comments DCP- Discharge Planning Updated by [id number]: Jamie Garza on 05/23/18 3:[address] Patient Name: Kay CAGLE Encounter No: [id number] : 1935 Primary Insurance: MEDICARE A & B Anticipated DC Date: 05-23-2018 Planned Disposition: Longterm Facility External Planned Provider: [facility] RE[facility] B[facility] DCP follow-up note: CM SPOKE TO DR. INIGUEZ WHO INFORMED CM THAT PT IS READY TO DISCHARGE TO REHAB TODAY. CM REVIEWED CHART, PHYSICAL THERAPY EVALUATION IS DOCUMENTED OVER WEEKEND. CM FAXED REFERRAL TO [facility] AT [phone]. CM CALLED [facility], , ASKED FOR SCREENING AND ADMISSION DETERMINATION TODAY. PT NOTIFIED IN ROOM, PT REPORTS AGREEMENT WITH REHAB PLACEMENT AT [facility]. IMPORTANT MESSAGE FROM MEDICARE PROVIDED AND EXPLAINED. PT ASKED CM TO NOTIFY HER DAUGHTER WHO IS "HERE SOMEWHERE." PT'S DAUGHTER SPOKE TO CM AT NURSES STATION, THEY ARE IN AGREEMENT WITH REHAB AT [facility] AND ASKED FOR PERSONAL CARE AGENCY LISTING. CM PROVIDED PERSONAL CARE AGENCY LISTING. PT'S DAUGHTER ASKED ABOUT HOME HEALTH, CM EXPLAINED THAT HOME SERVICES AND MEDICAL EQUIPMENT WOULD BE ARRANGED BY [facility] PART OF DISCHARGE PLANNING FROM REHAB. PT'S DAUGHTER THANKED FOR ASSISTANCE. AT APPROXIMATELY 1330 HOURS, CM CALLED MALI OF [facility], , WHO ADVISED THAT THE BUGGY RUNNER STILL HAS NOT COMPLETED HER REVIEW FOR ADMISSION DETERMINATION. CM WAITING ADMISSION DETERMINATION FROM [facility] FOR REHAB SERVICES. 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 PT AND DAUGHTER NOTIED IN ROOM. BOTH IN AGREEMENT WITH DISCHARGE TO REHAB TOMORROW. CM NOTIFIED DR. PASTOR NURSE VIA PHONE IN CLINIC. CM NOTIFIED TRANSITIONAL CARE MANAGER NURSE. CM FAXED DISCHARGE INFORMATION TO [facility]. NURSE REPORT TO BE CALLED TO [facility] AT [phone]. [facility] TO ARRANGE VAN TRANSPORT FOR 1100AM 05-24-18. JUANA VENTURA MANAGEMENT DCP- Discharge Planning Updated by [id number]: Jamie Garza on 05/20/18 4:[address] Patient Name: Kay CAGLE Encounter No: [id number] : 1935 Primary Insurance: MEDICARE A & B Anticipated DC Date: 05-23-2018 Planned Disposition: Longterm Facility External Planned Provider: [facility]ARE REHAB BED DCP follow-up note: CM MET WITH PT AND DAUGHTERS IN ROOM TO DISCUSS REHAB AND DISCHARGE NEEDS. PT REPORTS BEING WEAK AND UNABLE TO RETURN HOME ALONE AT DISCHARGE. PT'S DAUGHTERS RECOMMENDED REHAB AT [facility] TO PT PT DOES NOT FEEL SHE CAN PARTICIPATE IN THREE HOURS OF THERAPY PER DAY FOR INPATIENT REHAB. CM PROVIDED PROVIDER LISTING. PT WANTS REHAB AT [facility] TO BE CLOSE TO HER HOME. CHOICE SIGNED. CM EXPLAINED THAT PT WILL NEED TO BE MEDIALLY STABLE FOR DISCHARGE TO BE DISCHARGED TO REHAB AND ONCE PHYSICAL AND OCCUPATIONAL THERAPY EVALUATIONS ARE COMPLETED WHILE HERE IN HOSPITAL, CM WILL SEND REFERRAL FOR REHAB TO [facility]. PATIENT NEEDS ORDERS FOR PHYSICAL AND OCCUPATIONAL THERAPY EVALUATIONS. ONCE COMPLETED AND DOCUMENTED, CM WILL SEND REFERRAL FOR REHAB TO [facility]. JUANA Ventura DCP- Discharge Planning Updated by [id number]: Natasha Scott on 05/15/18 8:[address] Patient Name: Kay CAGLE Admission Status: Elective Accout number: [id number] Admission Date: 05-11-2018 : 1935 Admission Diagnosis:SHORTNESS OF BREATH Attending: JUAN JOSÉ INIGUEZ Current LOS: 4 Anticipated DC Date: 05-18-2018 Planned Disposition: Home Primary Insurance: MEDICARE A & B Discharge Planning Comments: CM MET WITH PATIENT AND DAUGHTER (ANAIS) REGARDING D/C NEEDS AND PLANS. PATIENT LIVES ALONE IN THE [facility] AND WANTS TO RETURN THERE AT D/C. PATIENT STATED HER FAMILY OR A FRIEND WOULD DRIVE HER HOME AT DISCHARGE. PATIENT IS INDEPENDENT WITH HER CARE AND HAS NO DME EQUIPMENT AT HOME. PATIENTS PCP IS DR. INIGUEZ AND USES [email or web address] AT THE [facility]. PATIENTS DAUGHTER STATED THEY DID NOT WANT TO CHOOSE A HOME HEALTH OR ANY OTHER PROVIDER FOR SERVICES UNTIL THEY SPEAK WITH DR. INIGUEZ. DAUGHTER STATED THEY WILL WAIT FOR THE OUTCOME BEFORE CONSIDERING OPTIONS. CM WILL CONTINUE TO FOLLOW PATIENT WITH D/C NEEDS AND PLANS. PCP DR. INIGUEZ [facility] (DAUGHTER) [phone] ANAIS (DAUGHTER) [phone] Lifter Driver: Natasha Scott DCA - Discharge Planning Initial Assessment Updated by [id number]: Natasha Scott on 05/15/18 9:08 am * Is the patient Alert and Oriented? Yes * How many steps to enter\\exit or inside your home? * PCP DR. INIGUEZ * [facility] * Preadmission Environment Home Alone * ADLs Independent * Equipment None * List name and contact numbers for known caregivers / representatives who currently or will assist patient after discharge: DUNCAN LEMONS (DAUGHTER) [phone] ANAIS YUEN (DAUGHTER) [phone] * Verbal permission to speak to the caregivers and representatives has been obtained from the patient. Yes * Community resources currently utilized None * Additional services required to return to the preadmission environment? Yes * Can the patient safely return to the preadmission environment? Yes * Has this patient been hospitalized within the prior 30 days at any hospital? No Coverage Notice Reviewer: [id number] - Jamie Garza Notice Issued Date-Time: 05/23/2018 12:05 Notice Type: IM Discharge Notice Notice Delivered To: Patient Relationship to Patient: Bonderizer Name: Delivery Method: HAND - Hand Delivered Gabriela Days: Prior Verbal Notification: Recipient Understood Notice: Yes Recipient Signature: Med Rec Note Co-signed by Attending: Coverage Notice Comment: PATIENT REFUSED SIGNATURE Last DP export: 05/23/18 3:18 p Patient Name: Kay CAGLE Page 01750 at 1414 All edits/amendments must be made on the electronic document DICTATION DATE: 05/24/181412 OFFICE TECHNOLOGIST: ISSA 05/24/18 1413 RPT#: [id number] DC DATE:05/24/18 STATUS: DIS IN [facility] [address] [place] [address] END OF REPORT
[2018-05-25 11:20] LABS: FUNGUS CULTURE RESULT 1 Candida albicans (()); FUNGUS MYCOLOGY CULTURE Preliminary report (())
[2018-06-08 15:22] LABS: FUNGUS MYCOLOGY CULTURE Final report (())
== END 2018-05-24 11:35 | DRG 180 ==
LOC: D.M2 15:01
PROVIDERS: Family Medicine; General Practice; Internal Medicine Hematology & Oncology; Internal Medicine Pulmonary Disease; Specialist; ADMIT Family Medicine
PROC: 0W993ZZ Drainage of Right Pleural Cavity, Percutaneous Approach (ICD-10-PCS; principal; 2018-05-12 09:30)
PROC: 0W9930Z Drainage of Right Pleural Cavity with Drainage Device, Percutaneous Approach (ICD-10-PCS; 2018-05-13 16:00)
PROC: 0W9930Z Drainage of Right Pleural Cavity with Drainage Device, Percutaneous Approach (ICD-10-PCS; 2018-05-16)
PROC: 0B928ZZ Drainage of Carina, Via Natural or Artificial Opening Endoscopic (ICD-10-PCS; 2018-05-18)
PROC: 0B948ZZ Drainage of Right Upper Lobe Bronchus, Via Natural or Artificial Opening Endoscopic (ICD-10-PCS; 2018-05-18)
PROC: 0B918ZZ Drainage of Trachea, Via Natural or Artificial Opening Endoscopic (ICD-10-PCS; 2018-05-18)
PROC: 0B958ZZ Drainage of Right Middle Lobe Bronchus, Via Natural or Artificial Opening Endoscopic (ICD-10-PCS; 2018-05-18)
PROC: 0B938ZZ Drainage of Right Main Bronchus, Via Natural or Artificial Opening Endoscopic (ICD-10-PCS; 2018-05-18)
PROC: 0B968ZZ Drainage of Right Lower Lobe Bronchus, Via Natural or Artificial Opening Endoscopic (ICD-10-PCS; 2018-05-18)
DX: C34.11 Malignant neoplasm of upper lobe, right bronchus or lung (principal); J18.1 Lobar pneumonia, unspecified organism; J90 Pleural effusion, not elsewhere classified; J98.11 Atelectasis; J44.0 Chronic obstructive pulmonary disease with (acute) lower respiratory infection; I47.1 Supraventricular tachycardia; E46 Unspecified protein-calorie malnutrition; Z68.1 Body mass index [BMI] 19.9 or less, adult; R62.7 Adult failure to thrive; I25.10 Atherosclerotic heart disease of native coronary artery without angina pectoris; I48.0 Paroxysmal atrial fibrillation; Z87.891 Personal history of nicotine dependence